=== PATIENT | female | born 1955 | race African-American/Black ===

== ENCOUNTER 2016-10-04 12:06 | Emergency (ER) | payer MEDICAID ==
[2016-10-04 12:36] VITALS: BP 154/80; BMI 37.5
[2016-10-04] MEDS ORDERED: TORADOL 60 MG VIAL IM ONE (12:56)
--- NOTE | 2016-10-04 12:57 | DR.KNEE ---
HPI - Time seen Time seen: 12:55 - PCP Primary Care Physician: chen - Complaint/Symptoms Chief Complaint Doctor Comments: Patient complains of right knee pain today after falling onto her right knee yesterday. Chief Complaint:: pt fell on her right knee yesterday while mopping the kitchen floor - Source History Provided: Patient - Timing Onset of Chief Complaint: 10/03/16 PMH - PMH Past Medical History: Yes Past Medical History: Arthritis, Depression, Gout, Headaches, Hypertension Past Surgical History: Yes Surgical History: Joint Replacement - Family History History of Family Medical Conditions: Yes Family Medical History: Diabetes Mellitus, Cancer, Hypertension - Social History Does patient currently use any type of tobacco product: No Have you used tobacco products in the last 12 months: No Type of Tobacco Use: None Does any household member use tobacco: No Alcohol Use: None Do you use any recreational Drugs:: No Lives With: Family Lives Where: Home - infectious screening In the last 2 months have you had wt loss of >10#?: NO Have you had fever, night sweats or hemotysis?: No Have you traveled outside the country in the last 6 months?: No Isolation: Standard ROS - Review of Systems Constitutional: No Symptoms Reported Eyes: No Symptoms Reported ENTM: No Symptoms Reported Respiratoy: No Symptoms Reported Cardiovascular: No Symptoms Reported Gastrointestinal/Abdominal: No Symptoms Reported Genitourinary: No Symptoms Reported Neurological: No Symptoms Reported Musculoskeletal: Knee Integumentary: No Symptoms Reported Hematologic/Lymphatic: No Symptoms Reported Endocrine: No Symptoms Reported Psychiatric: No Symptoms Reported All Other Systems: Reviewed and Negative PE - Vital Signs Vitals: Temperature 98.5 F Pulse Rate 74 Respiratory Rate 18 Blood Pressure [Right Arm] 155/82 Blood Pressure 154/80 O2 Sat by Pulse Oximetry 100 - General Limitations: No Limitations General Appearance: Alert, In No Apparent Distress - Head Head Exam: Normal Inspection, Atraumatic - Eyes Eye exam: Normal Appearance, PERRL, EOMI - ENT ENT Exam: Normal Exam - Neck Neck Exam: Normal Inspection, Full ROM - Cardiovascular Cardiovascular Exam: Regular Rate, Normal Rhythm - Abdominal Exam Abdominal Exam: Normal Inspection, Normal Bowel Sounds Abdominal Tenderness: negative: RUQ, RLQ, LUQ, LLQ, Epigastrium, Suprapubic, Diffuse, Mild, Moderate, Severe, Other - Extremities Extremities Exam: Other (tenderness of right knee) - Upper Extremities Shoulder Exam: Normal Inspection Arm Exam: Normal Inspection Elbow Exam: Normal Inspection Forearm Exam: Normal Inspection Hand Exam: Normal Inspection Neuromotor Exam: Normal Exam Neurosensory Exam: Normal Exam Hand Tendon Exam: Flexor Digitorium Profundus (Location) - Lower Extremities Hip/Pelvis Exam: Normal Inspection Upper Leg Exam: Normal Inspection Knee Exam: Tenderness (to palpation). negative: Deformity Lower Leg Exam: Normal Inspection Ankle Exam: Normal Inspection Foot/Toe Exam: Normal Inspection Neurovascular/Tendon Exam: Normal Capillary Refill Course - Reevaluation 1st: Improved ROR - XRAY XRAY Interpreted by: Radiologist (There is no complication of the knee arthroplasty hardware. Alignment is anatomic without acute skeletal abnormality or joint effusion. Multiple ossific densities in the infrapatella region are stable. which may represent postsurgical change versus intra- articular bodies. Impression : No acute right knee skeletal abnormality.) - Diagnosis Discharge Problem: Contusion of knee, right Qualifiers: Encounter type: initial encounter Qualified Code(s): S80.01XA - Contusion of right knee, initial encounter - Discharge Plan Condition: Stable - Follow ups/Referrals Follow ups/Referrals: BRITTNY CONNOLLY [Primary Care Provider] - 3 days - Instructions
[2016-10-04] MEDS ORDERED: TORADOL 60 MG VIAL ONE (12:58)
--- NOTE | 2016-10-04 13:14 | RAD ---
Reported By: Two view right knee series: Indication: Right knee pain status post fall. Comparison: Right knee series dated September 04, 2016. Findings: There is no complication of the knee arthroplasty hardware. Alignment is anatomic without acute skeletal abnormality or joint effusion. Multiple ossific densities in the infrapatellar region are stable, which may represent postsurgical change versus intra-articular bodies. Impression: No acute right knee skeletal abnormality.
== END 2016-10-04 13:36 | disposition home or self-care (01) ==
LOC: ER 12:06
DX: S80.01XA Contusion of right knee, initial encounter (principal); W19.XXXA Unspecified fall, initial encounter; Y92.010 Kitchen of single-family (private) house as the place of occurrence of the external cause
CPT/HCPCS: 73560; 96372; 99282; J1885

== ENCOUNTER 2017-06-07 13:27 | Emergency (ER) | payer MEDICAID ==
[2017-06-07 14:03] VITALS: BP 142/84; BMI 42.0
== END 2017-06-07 17:54 | disposition left against medical advice (07) ==
LOC: ER 14:07
DX: M54.5 Low back pain (principal)
CPT/HCPCS: 99281

== ENCOUNTER 2017-06-27 12:22 | Emergency (ER) | payer MEDICAID ==
[2017-06-27 12:28] VITALS: BP 133/78; BMI 44.6
[2017-06-27] MEDS ORDERED: TORADOL 60 MG VIAL IM ONE (12:33)
[2017-06-27] MEDS ORDERED: NORFLEX INJ IM ONE (12:33)
--- NOTE | 2017-06-27 12:34 | DR.FBACK ---
HPI - Time Seen Time seen: 12:30 - PCP Primary Care Physician: CATHLEEN FERRIS - HPI Comment HPI Comment: HISTORY BELOW. - Complaint Chief Complaint Doctor Comments: LOWER BACK PAIN GONIG TO TO LEGS NO TRAUMA. HISTORY ARTHRITIS AND SCIATICA. PAIN WORSE PAST FEW DAYS. NO DYSURIA OR FEVER. Chief Complaint:: EMS TONED OUT TO PT WITH BACK AND SEVERE LEG PAIN".... PT PLACED IN WHEELCHAIR AND PT TRIAGED ,, - Reviewed Nurses Notes Review: Yes - Source History Provided: Patient, EMS - Mode of Arrival Mode of Arrival: EMS - Timing Onset of Chief Complaint: 06/26/17 - Duration Duration: Constant Duration: Days - Location Back Pain Location: BACK Radiation To: Thigh (AND LEG PAIN.) - Severity Severity: Moderate - Quality Quality: Aching, Sharp - Context Onset: Spontaneous History of: Chronic Back Pain - Modifying Factors Worsened By: None - Associated Signs and Symptoms Back Pain Symptoms: None Numbness: None Weakness: None PMH - PMH Past Medical History: Yes Past Medical History: Arthritis, Depression, Gout, Headaches, Hypertension Past Surgical History: Yes Surgical History: Joint Replacement - Family History History of Family Medical Conditions: Yes Family Medical History: Diabetes Mellitus, Cancer, Hypertension - Social History Does patient currently use any type of tobacco product: No Have you used tobacco products in the last 12 months: No Type of Tobacco Use: Smokeless Does any household member use tobacco: No Alcohol Use: None Do you use any recreational Drugs:: No Lives With: Family Lives Where: Home - infectious screening In the last 2 months have you had wt loss of >10#?: NO Have you had fever, night sweats or hemotysis?: No Have you traveled outside the country in the last 6 months?: No Isolation: Standard ROS - Review of Systems Constitutional: No Symptoms Reported. negative: Chills, Fever Eyes: No Symptoms Reported. negative: Eye Pain, Discharge ENTM: No Symptoms Reported. negative: Ear Pain, Nose Discharge, Nose Congestion , Throat Pain Respiratoy: No Symptoms Reported. negative: Productive Cough, Non-Productive Cough, Short of Breath, Wheezing, Hemoptysis Cardiovascular: No Symptoms Reported. negative: Chest Pain Gastrointestinal/Abdominal: No Symptoms Reported. negative: Abdominal Pain, Diarrhea, Nausea, Vomiting Genitourinary: No Symptoms Reported. negative: Dysuria, Frequency, Hematuria Neurological: negative: Headache, Weakness, Dizziness Musculoskeletal: Back Pain, Back Integumentary: No Symptoms Reported Hematologic/Lymphatic: No Symptoms Reported Endocrine: No Symptoms Reported All Other Systems: Reviewed and Negative PE - Vitals Vital Signs: Temp Resp BP BP Pulse Ox 06/27/17 12:23 98.6 F 20 133/78 99 06/07/17 14:00 142/84 01/04/16 15:34 155/82 - General Limitations: No Limitations General Appearance: Alert - Head Head Exam: Normal Inspection - Eyes Eye exam: Normal Appearance - ENT ENT Exam: Normal External Ear Exam - Chest Chest Inspection: Symmetric Chest Wall Rise - Respiratory Respiratory Exam: Normal Lung Sounds Bilat Respiratory Exam: Bilateral Clear to Auscultation - Cardiovascular Cardiovascular Exam: Regular Rate, Normal Rhythm, Normal Heart Sounds - Abdominal Exam Abdominal Exam: Normal Bowel Sounds, Soft. negative: Tenderness - Genitourinary External Exam: Female: Deferred : Speculum Exam (Female): Deferred : Bimanual Exam (female): Deferred - Extremities Extremities Exam: Normal Inspection - Back Back Exam: Paraspinal Tenderness, Vertebral Tenderness (LOWER BACK) - Neurological Neurological Exam: Alert, Oriented X3 - Psychiatric Psychiatric Exam: Normal Affect, Normal Mood - Skin Skin Exam: Normal Color MDM - Differential Diagnosis Differential Diagnosis: DJD, Musculoskeletal Pain, Strain Course - Treatment Treatment: SEE ORDERS. - Education/Counseling Education/Counseling: Patient, Education Educated On: Diagnosis, Needs for Follow Up - Diagnosis Discharge Problem: Back pain - Discharge Plan Disposition: 01 HOME, SELF-CARE Condition: Stable Prescriptions: Cyclobenzaprine HCl [FLEXERIL 10 MG *] 10 mg PO TID #15 tab Ibuprofen [MOTRIN TAB 600 MG *] 600 mg PO TID PRN #20 tab PRN Reason: Pain/Inflammation Tramadol HCl 50 mg PO Q8H #15 tablet - Follow ups/Referrals Follow ups/Referrals: NFD,None [Primary Care Provider] - 3 days - Instructions Instructions: Back Pain, Adult, [id number] Additional Instructions: RETURN TO ED IF WORSE..
[2017-06-27] MEDS ORDERED: NORFLEX INJ ONE (12:35)
[2017-06-27] MEDS ORDERED: TORADOL 60 MG VIAL ONE (12:35)
== END 2017-06-27 13:34 | disposition home or self-care (01) ==
LOC: ER 12:34
DX: M54.5 Low back pain (principal)
CPT/HCPCS: 96372; 99282; J1885; J2360

== ENCOUNTER 2017-07-13 14:45 | Emergency (ER) | payer MEDICAID ==
[2017-07-13 14:57] VITALS: BP 168/106; BMI 37.9
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
[2017-07-13] MEDS ORDERED: TORADOL 60 MG VIAL IM ONE (15:00)
[2017-07-13] MEDS ORDERED: TORADOL 60 MG VIAL ONE (15:02)
[2017-07-13] MEDS ORDERED: DECADRON INJ IM ONE (15:05)
[2017-07-13] MEDS ORDERED: DECADRON INJ ONE (15:13)
== END 2017-07-13 15:18 | disposition home or self-care (01) ==
LOC: ER 15:04
DX: M17.12 Unilateral primary osteoarthritis, left knee (principal); M54.5 Low back pain; G89.29 Other chronic pain
CPT/HCPCS: 96372; 99282; J1100; J1885

== ENCOUNTER → 2017-07-19 | Outpatient (CLI) | payer MEDICAID ==
[2017-07-13 14:57] VITALS: BP 168/106
[2017-07-19 14:21] LABS: BASOPHILS # (AUTO) 0.1 X10^3/uL (0.0-0.1); EOSINOPHILS # (AUTO) 0.3 x10^3/uL (0.0-0.2); EOSINOPHILS % (AUTO) 2.4 % (0.9-2.9); HEMATOCRIT 40.7 % (36.0-47.0); HEMOGLOBIN 14.2 g/dL (12.0-16.0); LYMPHOCYTES # (AUTO) 4.5 X10^3/uL (1.3-2.9); LYMPHOCYTES % (AUTO) 35.1 % (21.0-51.0); MEAN CORPUSCULAR HEMOGLOBIN 30.2 pg (27.0-34.0); MEAN CORPUSCULAR VOLUME 86.4 fL (80.0-100.0); MEAN PLATELET VOLUME 8.8 fL (7.4-11.0); MONOCYTES # (AUTO) 0.9 x10^3/uL (0.3-0.8); MONOCYTES % (AUTO) 7.3 % (0.0-13.0); NEUTROPHILS # (AUTO) 6.9 x10^3/uL (2.2-4.8); NEUTROPHILS % (AUTO) 54.2 % (42.0-75.0); PLATELET COUNT 344 X10^3/uL (150.0-450.0); WHITE BLOOD COUNT 12.7 X10^3/uL (3.6-10.0)
[2017-07-19 14:31] LABS: HEMOGLOBIN A1C 5.6 % (4.5-6.2)
[2017-07-19 14:32] LABS: ALANINE AMINOTRANSFERASE 16 Units/L (12-78); ALBUMIN 3.4 g/dL (3.4-5.0); ALKALINE PHOSPHATASE 189 Units/L (46-116); ASPARTATE AMINO TRANSFERASE 16 Units/L (15-37); BLOOD UREA NITROGEN 18 mg/dL (7-18); CALCIUM 9.6 mg/dL (8.5-10.1); CARBON DIOXIDE 18.9 mmol/L (21-32); CHLORIDE 103 mmol/L (98-107); CHOL/HDL RATIO 3.4 (0.0-5.0); CHOLESTEROL 226 mg/dL (0-200); CREATININE 1.09 mg/dL (0.55-1.02); HDL CHOLESTEROL 67 mg/dL (40-60); SODIUM 138 mmol/L (136-145); TOTAL PROTEIN 8.4 g/dL (6.4-8.2); TRIGLYCERIDES 83 mg/dL (0-150); eGFR BLACK RACES > 60 (>60); eGFR NON BLACK RACES 54 (>60)
[2017-07-19 14:47] LABS: CREATININE,URINE 132.83 mg/dL (29-226)
== END ==
LOC: LAB 13:44
PROVIDERS: ATTEND Obstetrics & Gynecology Obstetrics
DX: E11.9 Type 2 diabetes mellitus without complications (principal)
CPT/HCPCS: 36415; 80053; 80061; 82043; 83036; 83525; 85025

== ENCOUNTER 2017-09-02 10:57 | Emergency (ER) | payer MEDICAID ==
[2017-09-02 11:05] VITALS: BP 126/79; BMI 36.6
[2017-09-02] MEDS ORDERED: NORFLEX INJ IM ONE (11:40)
[2017-09-02] MEDS ORDERED: TORADOL 60 MG VIAL IM ONE (11:40)
--- NOTE | 2017-09-02 11:43 | DR.GENAD ---
HPI - PCP Primary Care Physician: Zaira - HPI Comment HPI Comment: WORSE TODAY. HOME MED DID NOT HELP PAIN. - Complaint/Symptoms Chief Complaint Doctors Comments: LOW BACK PAIN GOING TO RT RT LEG FOR SEVERAL MONTHS. Chief Complaint:: "For over a year now my back and my right leg has been hurting really bad. He gave me some medicine but it isn't helping. I can't hardly even stand." - Nurses notes reviewed Nurses Notes Review: Yes - Source History Provided: Patient - Mode of Arrival Mode of Arrival: Wheelchair - Timing Onset of Chief Complaint: 08/12/16 Came on: Suddenly - Duration Duration: Constant Duration: Days - Severity Severity: Moderate PMH - PMH Past Medical History: Yes Past Medical History: Arthritis, Depression, Gout, Headaches, Hypertension Past Surgical History: Yes Surgical History: Joint Replacement - Family History History of Family Medical Conditions: Yes Family Medical History: Diabetes Mellitus, Cancer, Hypertension - Social History Does patient currently use any type of tobacco product: No Have you used tobacco products in the last 12 months: No Type of Tobacco Use: None Does any household member use tobacco: No Alcohol Use: None Do you use any recreational Drugs:: No Lives With: Family Lives Where: Home - infectious screening In the last 2 months have you had wt loss of >10#?: NO Have you had fever, night sweats or hemotysis?: No Have you traveled outside the country in the last 6 months?: No Isolation: Standard ROS - Review of Systems Constitutional: No Symptoms Reported Eyes: No Symptoms Reported ENTM: No Symptoms Reported Respiratoy: No Symptoms Reported Cardiovascular: No Symptoms Reported Gastrointestinal/Abdominal: No Symptoms Reported Genitourinary: No Symptoms Reported Neurological: No Symptoms Reported, Other (PAIN GOES TO RT LEG.) Musculoskeletal: Back Pain, Back Integumentary: No Symptoms Reported Hematologic/Lymphatic: No Symptoms Reported Endocrine: No Symptoms Reported All Other Systems: Reviewed and Negative PE - Vital Signs Vitals: Temperature 98.5 F Pulse Rate 71 Respiratory Rate 18 Blood Pressure [Right Arm] 155/82 Blood Pressure 126/79 O2 Sat by Pulse Oximetry 98 - General Limitations: No Limitations General Appearance: Alert - Head Head Exam: Normal Inspection - Eyes Eye exam: Normal Appearance - ENT ENT Exam: Normal External Ear Exam External Ear Exam: Normal External Inspection TM/Canal Exam: Bilateral Normal Nose Exam: Normal Nose Exam Mouth Exam: Normal Inspection Throat Exam: Normal Inspection - Neck Neck Exam: Normal Inspection - Chest Chest Inspection: Symmetric Chest Wall Rise - Respiratory Respiratory Exam: Normal Lung Sounds Bilat Respiratory Exam: Bilateral Clear to Auscultation - Cardiovascular Cardiovascular Exam: Regular Rate, Normal Rhythm, Normal Heart Sounds - Abdominal Exam Abdominal Exam: Normal Bowel Sounds, Soft, Tenderness - Extremities Extremities Exam: Tenderness (PAIN GOES TO RT LEG) - Back Back Exam: Muscle Spasm, Paraspinal Tenderness - Neurologic Neurological Exam: Alert - Psychiatric Psychiatric Exam: Normal Affect, Normal Mood - Skin Skin Exam: Normal Color - Diagnosis Discharge Problem: Back pain Qualifiers: Back pain location: low back pain Chronicity: chronic Back pain laterality: bilateral Sciatica presence: with sciatica Sciatica laterality: bilateral sciatica Qualified Code(s): M54.42 - Lumbago with sciatica, left side; M54.41 - Lumbago with sciatica, right side; M54.41 - Lumbago with sciatica, right side; G89.29 - Other chronic pain; G89.29 - Other chronic pain Sciatica Qualifiers: Laterality: right Qualified Code(s): M54.31 - Sciatica, right side - Discharge Plan Disposition: HOME, SELF-CARE Condition: Stable - Follow ups/Referrals Follow ups/Referrals: NFD,None [Primary Care Provider] - 09/03/17 - Instructions Instructions: Back Pain, Adult, [id number] Additional Instructions: RETURN TO ED IF WORSE. CONTINUE WITH MEDS AT HOME.
[2017-09-02] MEDS ORDERED: TORADOL 60 MG VIAL ONE (11:47)
[2017-09-02] MEDS ORDERED: NORFLEX INJ ONE (11:47)
== END 2017-09-02 13:22 | disposition home or self-care (01) ==
LOC: ER 11:05
DX: M54.42 Lumbago with sciatica, left side (principal); M54.41 Lumbago with sciatica, right side; G89.29 Other chronic pain; M54.31 Sciatica, right side
CPT/HCPCS: 96372; 99282; J1885; J2360

== ENCOUNTER → 2017-09-08 | Outpatient (CLI) | payer MEDICAID ==
[2017-09-02 11:05] VITALS: BP 126/79
--- NOTE | 2017-09-08 15:48 | RAD ---
HISTORY: Knee pain Study: Four views right knee Comparison: None Findings: Status post total knee arthroplasty and patellar resurfacing. No abnormal perihardware lucency or mal alignment is identified. No acute fracture. No joint effusion. IMPRESSION: 1. Right knee arthroplasty without complication. Reported By:
--- NOTE | 2017-09-08 15:49 | RAD ---
HISTORY: Knee pain Study: Four views left knee Comparison: None Findings: There are advanced tricompartmental osteoarthritic changes of the left knee. There is associated join t space narrowing with prominent marginal osteophytes and scattered subchondral lucencies likely dege nerative in nature. No joint effusion is seen. No acute fracture is identified. IMPRESSION: 1. Advanced osteoarthritic changes of the left knee. Reported By:
== END ==
LOC: RAD 13:24
PROVIDERS: ATTEND Specialist
DX: M25.561 Pain in right knee (principal); M25.562 Pain in left knee; Z96.651 Presence of right artificial knee joint
CPT/HCPCS: 73564

== ENCOUNTER → 2017-09-23 | Outpatient (CLI) | payer MEDICAID ==
[2017-09-02 11:05] VITALS: BP 126/79
--- NOTE | 2017-09-23 14:08 | RAD ---
Examination: Chest x-ray. Clinical History: Preop for knee surgery. Technique: PA and lateral views of the chest were obtained. Comparison: None available. Findings: The cardiac and mediastinal contours are within normal limits. The thoracic aorta is calcified and mi ldly tortuous. No pneumothorax or pleural effusion is noted. The lungs appear clear. There is a thoracic scoliosis seen convex to the right. Degenerative changes are noted in the spine. Marked osteoarthritic changes are noted at the glenohumeral joints bilaterally. No acute osseous abno rmality is noted. Surgical clips are seen overlying the right upper abdomen consistent with a prior cholecystectomy. Impression: 1. No acute disease. Reported By:
== END ==
LOC: LAB 13:12
PROVIDERS: ATTEND Orthopaedic Surgery
DX: Z01.810 Encounter for preprocedural cardiovascular examination (principal); Z01.811 Encounter for preprocedural respiratory examination; M17.12 Unilateral primary osteoarthritis, left knee
CPT/HCPCS: 71046; 93005; 93010

== ENCOUNTER 2017-11-17 12:29 | Emergency (ER) | payer MEDICAID ==
[2017-11-17 12:36] VITALS: BP 145/78; BMI 39.9
[2017-11-17] MEDS ORDERED: TORADOL 60 MG VIAL IM ONE (12:47)
[2017-11-17] MEDS ORDERED: TORADOL 60 MG VIAL ONE (12:48)
[2017-11-17 13:24] LABS: BASOPHILS # (AUTO) 0.1 X10^3/uL (0.0-0.1); BASOPHILS % (AUTO) 0.7 % (0.2-1.0); EOSINOPHILS # (AUTO) 0.3 x10^3/uL (0.0-0.2); EOSINOPHILS % (AUTO) 2.6 % (0.9-2.9); HEMATOCRIT 37.4 % (36.0-47.0); HEMOGLOBIN 12.7 g/dL (12.0-16.0); LYMPHOCYTES # (AUTO) 4.8 X10^3/uL (1.3-2.9); LYMPHOCYTES % (AUTO) 38.6 % (21.0-51.0); MEAN CORPUSCULAR HEMOGLOBIN 30.1 pg (27.0-34.0); MEAN CORPUSCULAR HGB CONC 33.9 g/dL (33.0-35.0); MEAN CORPUSCULAR VOLUME 88.6 fL (80.0-100.0); MONOCYTES # (AUTO) 1.1 x10^3/uL (0.3-0.8); MONOCYTES % (AUTO) 9.1 % (0.0-13.0); NEUTROPHILS # (AUTO) 6.1 x10^3/uL (2.2-4.8); PLATELET COUNT 212 X10^3/uL (150.0-450.0); RED BLOOD COUNT 4.22 X10^6/uL (3.5-5.4); RED CELL DISTRIBUTION WIDTH 15.2 % (11.6-16.5); WHITE BLOOD COUNT 12.4 X10^3/uL (3.6-10.0)
--- NOTE | 2017-11-17 13:32 | DR.FBACK ---
HPI - Time Seen Time seen: 12:45 - PCP Primary Care Physician: CATHLEEN - Complaint Chief Complaint Doctor Comments: Patient presents with chronic back, hip and knee pain. She is taking lorcet 10s qid but should be taking the tid. She states that she is out of medication. Chief Complaint:: PATIENT STATED THAT SHE HAS BEEN FALLING MULT. TIMES OVER THE LAST COUPLE OF WEEKS. SHE HAS FALLEN LAST NIGHT AND THIS MORNING. PATIENT STATED THAT SHE HAS TALKEN TO DR. CONNOLLY ABOUT THIS HAPPENING BUT HE HAS NOT DONE ANYTHING FOR HER. - Source History Provided: Patient, EMS - Mode of Arrival Mode of Arrival: EMS - Timing Onset of Chief Complaint: 11/17/17 PMH - PMH Past Medical History: Yes Past Medical History: Arthritis, Depression, Gout, Headaches, Hypertension Past Surgical History: Yes Surgical History: Joint Replacement - Family History History of Family Medical Conditions: Yes Family Medical History: Diabetes Mellitus, Cancer, Hypertension - Social History Type of Tobacco Use: Smokeless Does any household member use tobacco: No Alcohol Use: None Do you use any recreational Drugs:: No Lives With: Family Lives Where: Home - infectious screening In the last 2 months have you had wt loss of >10#?: NO Have you had fever, night sweats or hemotysis?: No Have you traveled outside the country in the last 6 months?: No Isolation: Standard ROS - Review of Systems Eyes: No Symptoms Reported ENTM: No Symptoms Reported Respiratoy: No Symptoms Reported Cardiovascular: No Symptoms Reported Gastrointestinal/Abdominal: No Symptoms Reported Genitourinary: No Symptoms Reported Neurological: No Symptoms Reported Musculoskeletal: No Symptoms Reported Integumentary: No Symptoms Reported Hematologic/Lymphatic: No Symptoms Reported Endocrine: No Symptoms Reported Psychiatric: No Symptoms Reported All Other Systems: Reviewed and Negative PE - Vitals Vital Signs: Temp Pulse Resp BP BP Pulse Ox 11/17/17 12:30 97.6 F 83 20 145/78 97 09/02/17 11:01 126/79 01/04/16 15:34 155/82 - General Limitations: No Limitations General Appearance: Alert - Head Head Exam: Normal Inspection, Atraumatic - Eyes Eye exam: Normal Appearance, PERRL, EOMI - ENT ENT Exam: Normal Exam, Normal Oropharynx - Chest Chest Inspection: Normal Inspection, Symmetric Chest Wall Rise - Respiratory Respiratory Exam: Normal Lung Sounds Bilat Respiratory Exam: Bilateral Clear to Auscultation - Cardiovascular Cardiovascular Exam: Regular Rate, Normal Rhythm - Abdominal Exam Abdominal Exam: Normal Inspection, Normal Bowel Sounds Abdominal Tenderness: negative: RUQ, RLQ, LUQ, LLQ, Epigastrium, Suprapubic, Diffuse, Mild, Moderate, Severe, Other - Genitourinary External Exam: Female: Deferred : Speculum Exam (Female): Deferred : Bimanual Exam (female): Deferred - Extremities Extremities Exam: Tenderness (right hip) - Back Back Exam: Normal Inspection, Tenderness (Low lumbar) - Neurological Neurological Exam: Alert, Oriented X3, CN II-XII Intact - Psychiatric Psychiatric Exam: Normal Affect, Normal Mood - Skin Skin Exam: Warm, Dry ROR - Labs Reviewed Result Diagrams: 11/17/17 13:15 11/17/17 13:15 - Diagnosis Discharge Problem: Chronic back pain Qualifiers: Back pain location: low back pain Back pain laterality: right Sciatica presence : without sciatica Qualified Code(s): M54.5 - Low back pain; G89.29 - Other chronic pain; G89.29 - Other chronic pain Osteoarthritis of right hip Qualifiers: Osteoarthritis type: unspecified Qualified Code(s): M16.11 - Unilateral primary osteoarthritis, right hip - Discharge Plan Condition: Stable - Follow ups/Referrals Follow ups/Referrals: BRITTNY CONNOLLY [Primary Care Provider] - 3 days - Instructions
[2017-11-17] MEDS ORDERED: DILAUDID INJ IM ONE (13:39)
[2017-11-17] MEDS ORDERED: DILAUDID INJ ONE (13:41)
[2017-11-17 13:56] LABS: ALANINE AMINOTRANSFERASE 19 Units/L (12-78); ALBUMIN 3.2 g/dL (3.4-5.0); ALKALINE PHOSPHATASE 156 Units/L (46-116); ASPARTATE AMINO TRANSFERASE 20 Units/L (15-37); BLOOD UREA NITROGEN 22 mg/dL (7-18); CALCIUM 8.6 mg/dL (8.5-10.1); CARBON DIOXIDE 27.7 mmol/L (21-32); CHLORIDE 105 mmol/L (98-107); COR CA(FOR HYPOALB) 9.2 mg/dL (8.5-10.1); CREATININE 1.03 mg/dL (0.55-1.02); SODIUM 140 mmol/L (136-145); TOTAL PROTEIN 7.7 g/dL (6.4-8.2); eGFR BLACK RACES > 60 (>60); eGFR NON BLACK RACES 58 (>60)
== END 2017-11-17 14:07 | disposition home or self-care (01) ==
LOC: ER 12:31
DX: M54.5 Low back pain (principal); G89.29 Other chronic pain; M16.11 Unilateral primary osteoarthritis, right hip; R29.6 Repeated falls
CPT/HCPCS: 36415; 80053; 85025; 96372; 99282; J1170; J1885

== ENCOUNTER 2020-11-19 00:23 | Observation (INO) ==
[2020-11-19 01:00] VITALS: BMI 45.8
[2020-11-19 01:08] LABS: BASOPHILS # (AUTO) 0.1 X10^3/uL (0.0-0.1); BASOPHILS % (AUTO) 0.6 % (0.2-1.0); EOSINOPHILS # (AUTO) 0.1 x10^3/uL (0.0-0.2); EOSINOPHILS % (AUTO) 0.8 % (0.9-2.9); HEMATOCRIT 37.7 % (36.0-47.0); HEMOGLOBIN 12.7 g/dL (12.0-16.0); LYMPHOCYTES # (AUTO) 6.4 X10^3/uL (1.3-2.9); LYMPHOCYTES % (AUTO) 39.3 % (21.0-51.0); MEAN CORPUSCULAR HEMOGLOBIN 30.3 pg (27.0-34.0); MEAN CORPUSCULAR HGB CONC 33.7 g/dL (33.0-35.0); MEAN CORPUSCULAR VOLUME 89.9 fL (80.0-100.0); MEAN PLATELET VOLUME 9.6 fL (7.4-11.0); MONOCYTES # (AUTO) 1.5 x10^3/uL (0.3-0.8); MONOCYTES % (AUTO) 9.3 % (0.0-13.0); NEUTROPHILS # (AUTO) 8.1 x10^3/uL (2.2-4.8); PLATELET COUNT 261 X10^3/uL (150.0-450.0); RED BLOOD COUNT 4.19 X10^6/uL (3.5-5.4); RED CELL DISTRIBUTION WIDTH 15.2 % (11.6-16.5); WHITE BLOOD COUNT 16.2 X10^3/uL (3.6-10.0)
[2020-11-19 01:26] LABS: BLOOD UREA NITROGEN 6 mg/dL (7-18); CARBON DIOXIDE 24.1 mmol/L (21-32); CHLORIDE 104 mmol/L (98-107); SODIUM 140 mmol/L (136-145); TROPONIN I < 0.02 ng/mL (0-1.5); eGFR NON BLACK RACES 53 (>60)
[2020-11-19 01:32] LABS: ALANINE AMINOTRANSFERASE 17 Units/L (12-78); ALBUMIN 3.4 g/dL (3.4-5.0); ALKALINE PHOSPHATASE 110 Units/L (46-116); ASPARTATE AMINO TRANSFERASE 24 Units/L (15-37); CKMB % 1.1 % (<4); CREATINE KINASE 91 Units/L (26-192); CREATINE KINASE MB < 1.0 ng/mL (0-4.0); TOTAL PROTEIN 7.8 g/dL (6.4-8.2)
--- NOTE | 2020-11-19 02:10 | CT ---
STUDY: CT HEAD WITHOUT IV CONTRASTCOMPARISON: NoneTECHNIQUE: axial images were acquired of the head without IV contrast. Coronal and sagittal images were provided. All images were reviewed in a variety of windows and levels.LIMITATIONS: Please note that CT has low sensitivity and accuracy for identifying acute infarction. In addition, there are portions of the brain that are affected by beam hardening artifact which further greatly limits identification of an acute infarct.RADIATION REDUCTION TECHNIQUE: Automated exposure control, Adjustment of the mA and/or kV according to patient size, or iterative reconstruction techniques were used.HISTORY: AMSFINDINGS:There is no evidence of an acute intracranial bleed.There is no evidence of a mass or midline shift.There is no evidence of an extra-axial fluid collection.The hua-white matter differentiation is within normal limits.The visualized bones are unremarkable.The visualized sinuses are clear.The mastoid air cells are well-aerated.IMPRESSION:THERE IS NO EVIDENCE OF AN ACUTE INTRACRANIAL BLEEDElectronically signed by: Gareth Gutierrez (November 19, 2020 02:08:41)
--- NOTE | 2020-11-19 02:32 | DR.EXTPAIN ---
HPI Time seen Time Seen by Provider: 11/19/20 00:41 HPI Comment HPI Comment: Brought in by ambulance after family found that she was too confused to go to bathroom by herself; she was in br when ambulance arrive and seemed confused about what to do next; currently, speaking and mostly understandable; denies cp, sob, abd pain, n/v; she has had a cough but no fever or chills; no recent fall or trauma. PMH PMH Past Medical History: Arthritis, Diabetes, Dyslipidemia, Hypertension and Renal Disease Past Surgical History: Yes Surgical History: Ortho Surgery Family History Family Medical History: Hypertension Social History Do you use any recreational Drugs:: No ROS Review of Systems Constitutional: No Symptoms Reported Eyes: No Symptoms Reported ENTM: No Symptoms Reported Respiratoy: No Symptoms Reported Cardiovascular: No Symptoms Reported Gastrointestinal/Abdominal: No Symptoms Reported Genitourinary: No Symptoms Reported Musculoskeletal: No Symptoms Reported Integumentary: No Symptoms Reported Hematologic/Lymphatic: No Symptoms Reported Endocrine: No Symptoms Reported Psychiatric: No Symptoms Reported PE Vital Signs Vitals: Temperature 97.7 F Pulse Rate 101 Respiratory Rate 20 Blood Pressure [Left Arm] 156/68 Blood Pressure 159/73 O2 Sat by Pulse Oximetry 98 General Limitations: No Limitations General Appearance: Alert, In No Apparent Distress and Other (mostly coherent with a several episodes of confusion) Head Head Exam: Normal Inspection Eyes Eye exam: Normal Appearance ENT ENT Exam: Normal Exam Neck Neck Exam: Normal Inspection Chest Chest Inspection: Normal Inspection Respiratory Respiratory Exam: Normal Lung Sounds Bilat Cardiovascular Cardiovascular Exam: Regular Rate and Normal Rhythm Abdominal Exam Abdominal Exam: Normal Inspection, Normal Bowel Sounds and Soft Extremities Extremities Exam: Normal Inspection Back Back Exam: Normal Inspection Neurological Neurological Exam: Alert, Oriented X3 and CN II-XII Intact Psychiatric Psychiatric Exam: Other (calling out, trying to get out of bed) Skin Skin Exam: Warm, Dry, Intact and Normal Color COURSE Reevaluation 2nd: Worsened (more confused ) Consultation Call Returned: 04:07 (Dr Arguello accepts admission) ROR Labs Reviewed Laboratory Results Reviewed?: Yes Result Diagrams: 11/19/20 00:57 11/19/20 00:57 Laboratory: WBC 16.2 X10^3/uL (3.6-10.0) H 11/19/20 00:57 RBC 4.19 X10^6/uL (3.5-5.4) 11/19/20 00:57 Hgb 12.7 g/dL (12.0-16.0) 11/19/20 00:57 Hct 37.7 % (36.0-47.0) 11/19/20 00:57 MCV 89.9 fL (80.0-100.0) 11/19/20 00:57 MCH 30.3 pg (27.0-34.0) 11/19/20 00:57 MCHC 33.7 g/dL (33.0-35.0) 11/19/20 00:57 RDW 15.2 % (11.6-16.5) 11/19/20 00:57 Plt Count 261 X10^3/uL (150.0-450.0) 11/19/20 00:57 MPV 9.6 fL (7.4-11.0) 11/19/20 00:57 Neut % (Auto) 50.0 % (42.0-75.0) 11/19/20 00:57 Lymph % (Auto) 39.3 % (21.0-51.0) 11/19/20 00:57 Delta % (Auto) 9.3 % (0.0-13.0) 11/19/20 00:57 Eos % (Auto) 0.8 % (0.9-2.9) L 11/19/20 00:57 Baso % (Auto) 0.6 % (0.2-1.0) 11/19/20 00:57 Neut # (Auto) 8.1 x10^3/uL (2.2-4.8) H 11/19/20 00:57 Lymph # (Auto) 6.4 X10^3/uL (1.3-2.9) H 11/19/20 00:57 Delta # (Auto) 1.5 x10^3/uL (0.3-0.8) H 11/19/20 00:57 Eos # (Auto) 0.1 x10^3/uL (0.0-0.2) 11/19/20 00:57 Baso # (Auto) 0.1 X10^3/uL (0.0-0.1) 11/19/20 00:57 Absolute Nucleated RBC 0.1 /100WBC 11/19/20 00:57 Sodium 140 mmol/L (136-145) 05 00:57 Corrected Sodium TNP 11/19/20 00:57 Potassium 3.7 mmol/L (3.5-5.1) 11/19/20 00:57 Chloride 104 mmol/L (98-107) 11/19/20 00:57 Carbon Dioxide 24.1 mmol/L (21-32) 11/19/20 00:57 BUN 6 mg/dL (7-18) L 11/19/20 00:57 Creatinine 1.10 mg/dL (0.55-1.02) H 11/19/20 00:57 Est GFR (MDRD) Af Amer > 60 (>60) 11/19/20 00:57 Est GFR (MDRD) Non-Af 53 (>60) L 11/19/20 00:57 Glucose 73 mg/dL (65-99) 11/19/20 00:57 Calcium 9.0 mg/dL (8.5-10.1) 11/19/20 00:57 Corrected Calcium TNP 11/19/20 00:57 Total Bilirubin 0.30 mg/dL (0.2-1.0) 11/19/20 00:57 AST 24 Units/L (15-37) 11/19/20 00:57 ALT 17 Units/L (12-78) 11/19/20 00:57 Alkaline Phosphatase 110 Units/L (46-116) 11/19/20 00:57 Creatine Kinase 91 Units/L (26-192) 11/19/20 00:57 CK-MB (CK-2) < 1.0 ng/mL (0-4.0) 11/19/20 00:57 CK/CKMB % Calc 1.1 % (<4) 11/19/20 00:57 Troponin I < 0.02 ng/mL (0-1.5) 11/19/20 00:57 Total Protein 7.8 g/dL (6.4-8.2) 11/19/20 00:57 Albumin 3.4 g/dL (3.4-5.0) 11/19/20 00:57 Globulin 4.4 g/dL (2.5-4.5) 11/19/20 00:57 Albumin/Globulin Ratio 0.8 Ratio (1.1-2.1) L 11/19/20 00:57 Specimen Type Catherized urine 11/19/20 02:17 Urine Color Pale yellow (YELLOW) 11/19/20 02:17 Urine Appearance Clear (CLEAR) 11/19/20 02:17 Urine pH 6.5 (5.0 - 8.0) 11/19/20 02:17 Ur Specific [place] 1.010 (1.000-1.030) 11/19/20 02:17 Urine Protein Negative (NEGATIVE) 11/19/20 02:17 Urine Glucose (UA) Negative (NEGATIVE) 11/19/20 02:17 Urine Ketones Negative (NEGATIVE) 11/19/20 02:17 Urine Occult Blood Negative (NEGATIVE) 11/19/20 02:17 Urine Nitrite Negative (NEGATIVE) 11/19/20 02:17 Urine Bilirubin Negative (NEGATIVE) 11/19/20 02:17 Urine Urobilinogen Normal (NORMAL) 11/19/20 02:17 Ur Leukocyte Esterase Negative (NEGATIVE) 11/19/20 02:17 SARS CoV-2 RNA Rapid SHERYL Negative (NEGATIVE) 11/19/20 03:14 XRAY XRAY Interpreted by: Radiologist X-ray Results: head ct: THERE IS NO EVIDENCE OF AN ACUTE INTRACRANIAL BLEED pcxr: 1. No focal consolidation is seen. 2. The heart size is normal. Opioid Opioid Risk Tool Age (Dayo box if 16-45): No History of Preadolescent Sexual Abuse: No Total: 0 Total Score Risk Category: Low Risk Copyright: Joaquin VICK predicting aberrant behaviors Diagnosis Discharge Problem: Acute confusion Hypertension Qualifiers: Hypertension type: essential hypertension Qualified Code(s): I10 - Essential (primary) hypertension Instructions Instructions: Hypertension, [id number] Forms: Patient Portal Social Distancing
[2020-11-19 02:38] LABS: BILIRUBIN,URINE NEGATIVE (NEGATIVE); BLOOD/HEMOGLOBIN,URINE NEGATIVE (NEGATIVE); GLUCOSE, URINE NEGATIVE (NEGATIVE); KETONES,URINE NEGATIVE (NEGATIVE); LEUKOCYTE ESTERASE ,URINE NEGATIVE (NEGATIVE); NITRITES,URINE NEGATIVE (NEGATIVE); PH,URINE 6.5 (5.0 - 8.0); PROTEIN,URINE NEGATIVE (NEGATIVE); UROBILINOGEN,URINE NORMAL (NORMAL)
[2020-11-19 02:54] LABS: APPEARANCE,URINE CLEAR (CLEAR); COLOR,URINE PALE YELLOW (YELLOW)
--- NOTE | 2020-11-19 03:33 | RAD ---
STUDY: FRONTAL VIEW CHESTCOMPARISON: March 13, 2020HISTORY: COUGHFINDINGS:Subsegmental atelectasis is noted.No focal consolidation is seen.The heart size is within normal limits.The mediastinum is unremarkable.There is no evidence of pleural effusion or gross pneumothorax.The trachea is midline.IMPRESSION:1. No focal consolidation is seen.2. The heart size is normal.Electronically signed by: Gareth Gutierrez (November 19, 2020 03:31:00)
[2020-11-19] MEDS ORDERED: ATIVAN TAB 0.5 MG PO ONE (03:43)
[2020-11-19] MEDS ORDERED: ATIVAN TAB 0.5 MG ONE (03:48)
[2020-11-19] MEDS ORDERED: ATIVAN TAB 0.5 MG PO PRN (04:05)
[2020-11-19] MEDS ORDERED: NS 1000 ML 1,000 ML IV SCH (05:00)
[2020-11-19] MEDS ORDERED: NS 1000 ML 1,000 ML ONE (06:09)
[2020-11-19] MEDS: NS 1000 ML 1,000 ML IV SCH ×2 (06:33→17:50)
[2020-11-19 06:47] LABS: BASOPHILS # (AUTO) 0.1 X10^3/uL (0.0-0.1); BASOPHILS % (AUTO) 0.8 % (0.2-1.0); EOSINOPHILS # (AUTO) 0.1 x10^3/uL (0.0-0.2); EOSINOPHILS % (AUTO) 0.6 % (0.9-2.9); HEMATOCRIT 39.3 % (36.0-47.0); HEMOGLOBIN 13.2 g/dL (12.0-16.0); LYMPHOCYTES # (AUTO) 5.4 X10^3/uL (1.3-2.9); LYMPHOCYTES % (AUTO) 34.2 % (21.0-51.0); MEAN CORPUSCULAR HEMOGLOBIN 30.1 pg (27.0-34.0); MEAN CORPUSCULAR HGB CONC 33.6 g/dL (33.0-35.0); MEAN CORPUSCULAR VOLUME 89.8 fL (80.0-100.0); MEAN PLATELET VOLUME 9.4 fL (7.4-11.0); MONOCYTES # (AUTO) 1.5 x10^3/uL (0.3-0.8); MONOCYTES % (AUTO) 9.6 % (0.0-13.0); NEUTROPHILS # (AUTO) 8.6 x10^3/uL (2.2-4.8); NEUTROPHILS % (AUTO) 54.8 % (42.0-75.0); PLATELET COUNT 271 X10^3/uL (150.0-450.0); RED BLOOD COUNT 4.38 X10^6/uL (3.5-5.4); WHITE BLOOD COUNT 15.8 X10^3/uL (3.6-10.0)
[2020-11-19 06:57] LABS: ALANINE AMINOTRANSFERASE 17 Units/L (12-78); ALBUMIN 3.8 g/dL (3.4-5.0); ALKALINE PHOSPHATASE 125 Units/L (46-116); ASPARTATE AMINO TRANSFERASE 25 Units/L (15-37); BLOOD UREA NITROGEN 6 mg/dL (7-18); CALCIUM 9.6 mg/dL (8.5-10.1); CARBON DIOXIDE 22.8 mmol/L (21-32); CHLORIDE 106 mmol/L (98-107); SODIUM 142 mmol/L (136-145); TOTAL PROTEIN 8.5 g/dL (6.4-8.2); eGFR NON BLACK RACES 59 (>60)
[2020-11-19 15:20] LABS: CHOL/HDL RATIO 1.6 (0.0-5.0); CHOLESTEROL 139 mg/dL (0-200); CKMB % 0.7 % (<4); CREATINE KINASE 153 Units/L (26-192); CREATINE KINASE MB < 1.0 ng/mL (0-4.0); FREE T4 (FREE THYROXINE) 1.31 ng/dL (0.76-1.46); HDL CHOLESTEROL 86 mg/dL (40-60); TRIGLYCERIDES 88 mg/dL (0-150); TROPONIN I < 0.02 ng/mL (0-1.5); TSH (3RD GENERATION) 1.632 uIU/mL (0.358-3.74)
[2020-11-19] MEDS ORDERED: NORCO 10/325 TAB PO PRN (15:42)
--- NOTE | 2020-11-19 17:59 | VAS ---
HISTORY: Concern for carotid artery stenosis. Carotid atherosclerosis.EXAM: BILATERAL DOPPLER CAROTID ULTRASOUND EXAMTechnique: Multiple hua scale and color flow Doppler images of the right and left carotid arterial system were obtained. The vertebral arterial system was evaluated as well.Findings:Nonocclusive color flow Doppler is seen throughout the right and left carotid arterial system. No hemodynamically significant carotid arterial stenosis is seen based on velocity criteria. There is mild bilateral atherosclerosis and soft atherosclerotic plaque formation of the bilateral carotid bulbs and ICAs with associated intimal thickening but without evidence for high-grade stenosis (>70%) or occlusion of the carotid arteries. The right and left vertebral artery demonstrate antegrade flow.IMPRESSION:Mild/moderate bilateral atherosclerotic soft plaque formation seen within the bilateral carotid bulbs and within both ICAs with [id number] associated carotid intimal thickening but without evidence for high-grade stenosis or occlusion of the carotid arteries, based on Doppler velocity criteria.Appropriate, antegrade, vertebral arterial flow. No advanced or severe carotid atherosclerosis is seen.Peak right ICA velocity: 54 centimeter/seconds.Peak right CCA velocity: 107 centimeter/seconds.Peak left ICA velocity: 50 centimeter/seconds.Peak left CCA velocity: 45 centimeter/seconds.Right ICA to CCA ratio: 1.03.Left ICA to CCA ratio: 1.13.Electronically signed by: ARELIS ROD III (November 19, 2020 17:58:06)
[2020-11-20] MEDS: NS 1000 ML 1,000 ML IV SCH (06:18)
[2020-11-20 07:00] LABS: ALANINE AMINOTRANSFERASE 12 Units/L (12-78); ALBUMIN 3.1 g/dL (3.4-5.0); ALKALINE PHOSPHATASE 106 Units/L (46-116); ASPARTATE AMINO TRANSFERASE 18 Units/L (15-37); BLOOD UREA NITROGEN 8 mg/dL (7-18); CALCIUM 8.8 mg/dL (8.5-10.1); CARBON DIOXIDE 24.9 mmol/L (21-32); CHLORIDE 110 mmol/L (98-107); COR CA(FOR HYPOALB) 9.5 mg/dL (8.5-10.1); CREATININE 0.89 mg/dL (0.55-1.02); SODIUM 147 mmol/L (136-145); TOTAL PROTEIN 7.1 g/dL (6.4-8.2); eGFR NON BLACK RACES > 60 (>60)
[2020-11-20 07:01] LABS: BASOPHILS % (AUTO) 0.4 % (0.2-1.0); EOSINOPHILS # (AUTO) 0.3 x10^3/uL (0.0-0.2); EOSINOPHILS % (AUTO) 3.3 % (0.9-2.9); HEMATOCRIT 35.8 % (36.0-47.0); HEMOGLOBIN 11.9 g/dL (12.0-16.0); LYMPHOCYTES # (AUTO) 4.1 X10^3/uL (1.3-2.9); LYMPHOCYTES % (AUTO) 41.1 % (21.0-51.0); MEAN CORPUSCULAR HEMOGLOBIN 30.2 pg (27.0-34.0); MEAN CORPUSCULAR HGB CONC 33.2 g/dL (33.0-35.0); MEAN CORPUSCULAR VOLUME 91.2 fL (80.0-100.0); MEAN PLATELET VOLUME 9.4 fL (7.4-11.0); MONOCYTES # (AUTO) 0.9 x10^3/uL (0.3-0.8); MONOCYTES % (AUTO) 8.5 % (0.0-13.0); NEUTROPHILS # (AUTO) 4.7 x10^3/uL (2.2-4.8); NEUTROPHILS % (AUTO) 46.7 % (42.0-75.0); PLATELET COUNT 234 X10^3/uL (150.0-450.0); RED BLOOD COUNT 3.92 X10^6/uL (3.5-5.4); RED CELL DISTRIBUTION WIDTH 15.3 % (11.6-16.5); WHITE BLOOD COUNT 10.1 X10^3/uL (3.6-10.0)
--- NOTE | 2020-11-20 08:51 | DR.H&P ---
H&P - History & Physical for Day of: H&P Date: 11/19/20 - Past Medical History Past Medical History: Hypertension, Dyslipidemia, Diabetes, Renal Disease, Arthritis - Past Surgical History Surgical History: Ortho Surgery - Family History Family Medical History: Hypertension - Social History Does any household member use tobacco: No Alcohol Use: None - Medications Home Medications: No Known Drug Allergies Allergy (Verified 06/20/20 16:32) CONTINUE taking the following medications amlodipine 10 mg PO DAILY 11/19/20 [History] atorvastatin 40 mg PO DAILY 11/19/20 [History] bisoprolol-hydrochlorothiazide 1 tab PO DAILY 11/19/20 [History] fluticasone propionate 2 mcg INTRANASAL DAILY 11/19/20 [History] gabapentin 800 mg PO TID PRN 11/19/20 [History] hydrocodone-acetaminophen 1 tab PO Q8H 11/19/20 [History] losartan 100 mg PO DAILY 11/19/20 [History] metformin 500 mg PO BID 11/19/20 [History] naproxen 500 mg PO DAILY 11/19/20 [History] tizanidine 4 mg PO BID 11/19/20 [History] trazodone 100 mg PO HS 11/19/20 [History] zolpidem 10 mg PO HS PRN 11/19/20 [History] New Prescriptions azithromycin [Zithromax Z-Micah] 250 mg PO DAILY #6 tab 11/20/20 [Rx] - Physical Exam Vital Signs: Temperature 97.8 F Pulse Rate [Left Radial] 61 Pulse Rate 101 Respiratory Rate 18 Blood Pressure [Left Arm] 132/79 Blood Pressure 152/80 O2 Sat by Pulse Oximetry 99 - Allergies Allergies/Adverse Reactions: Allergies Allergy/AdvReac Type Severity Reaction Status Date / Time No Known Drug Allergies Allergy Verified 06/20/20 16:32
[2020-11-20] MEDS: ROCEPHIN VIAL 1 GRAM 1 G in NS 100 ML IV + SPIKE MINIBAG* 100 ML IV SCH ×2 (09:16→09:17)
[2020-11-20 11:58] VITALS: BP 131/78
== END 2020-11-20 12:35 | disposition home or self-care (01) ==
LOC: ER 00:24 → OBS 00:24 → ICU 15:02 → MED/SURG 18:48
PROVIDERS: ADMIT Internal Medicine; ATTEND Internal Medicine
DX: D72.828 Other elevated white blood cell count; E11.9 Type 2 diabetes mellitus without complications; I10 Essential (primary) hypertension; Z20.822 Contact with and (suspected) exposure to COVID-19; E78.2 Mixed hyperlipidemia; Z79.899 Other long term (current) drug therapy; R41.0 Disorientation, unspecified